=== PATIENT | female | born 1945 | race Caucasian/White ===

== ENCOUNTER → 2021-01-29 10:16 | Outpatient (BNVA) | payer MEDICARE, OTHER, SELFPAY | PROVIDERS: Visit Provider Internal Medicine | DX: N18.31 Chronic kidney disease, stage 3a (principal) | CPT/HCPCS: 80069; 82043; 82310; 83970; 85007; 85027 ==

== ENCOUNTER 2022-08-19 03:56 | Emergency (ER) | payer MEDICARE, OTHER, SELFPAY ==
[2022-08-19] VITALS (7 sets, daily range): BP systolic 126–145; BP diastolic 55–108; PULSE 87–103; RESP 10–20; TEMP 36.3; O2SAT 89–98; BMI 40.2
--- NOTE | 2022-08-19 03:56 | XRR_ITS ---
PROCEDURE INFORMATION: Exam: XR Chest Exam date and time: 08/19/2022 4:17 AM Age: 76 years old Clinical indication: Pain; Chest pressure; Additional info: Cp TECHNIQUE: Imaging protocol: Radiologic exam of the chest. Views: 1 view. COMPARISON: No relevant prior studies available. FINDINGS: Lungs: Normal lung volumes. No interstitial or airspace opacities. Pleural spaces: No pleural effusion. No pneumothorax. Heart/Mediastinum: Mild prominence of the cardiac silhouette on this chest radiograph. There is a mildly tortuous thoracic aorta. Midline trachea. Bones/joints: No acute abnormalities. Mild levoconvex scoliosis of the lower thoracic spine with small degenerative osteophytes. Soft tissues: Multiple external densities are seen overlying the chest, limiting assessment. XR/XR chest 1V portable [id number] IMPRESSION: 1. No confluent infiltrates in the lungs. 2. Mild prominence of the cardiac silhouette on this chest radiograph.
--- NOTE | 2022-08-19 03:57 | ECG_ITS ---
[facility] Test Date: 2022-08-19 Pat Name: Elvia Bauman Department: Room: Gender: Female Railway Station Manager: : 1945 Requested By: Niall Bajwa Order Number: [id number] Leonard MD: Ramon Walters M.D. Measurements Intervals Industry Rate: 95 P: 10 CO: 132 QRS: -52 QRSD: 98 T: 76 QT: 343 QTc: 433 Interpretive Statements SINUS RHYTHM WITH OCCASIONAL SUPRAVENTRICULAR PREMATURE COMPLEXES LEFT ANTERIOR FASCICULAR BLOCK [QRS AXIS <= -45, QR IN I, RS IN II] LEFT VENTRICULAR HYPERTROPHY AND ST-T CHANGE [VOLTAGE CRITERIA PLUS ST/T ABNORMALITY] No previous ECG available for comparison Electronically Signed On 08-19-2022 7:13:09 ACCOUNT INSTALLER by Ramon Walters M.D. [email or web address] medical [id number] f
--- NOTE | 2022-08-19 04:01 | CTR_ITS ---
PROCEDURE INFORMATION: Exam: CTA Chest With Contrast Exam date and time: 08/19/2022 4:51 AM Age: 76 years old Clinical indication: Shortness of breath; Additional info: SOB TECHNIQUE: Imaging protocol: Computed tomographic angiography of the chest with contrast. 3D rendering (Not supervised by radiologist): MIP and/or 3D reconstructed images were created by the technologist. Radiation optimization: All CT scans at this facility use at least one of these dose optimization techniques: automated exposure control; mA and/or kV adjustment per patient size (includes targeted exams where dose is matched to clinical indication); or iterative reconstruction. Contrast material: OMNI 350; Contrast volume: 100 ml; Contrast route: INTRAVENOUS (IV); COMPARISON: CR (CHEST, ) 08/19/2022 4:17 AM RADIATION DOSE METRICS: Total DLP (mGy-cm): 450.14 FINDINGS: Pulmonary arteries: No CT evidence for segmental pulmonary emboli. The main pulmonary arteries and outflow trunk are unremarkable. Aorta: No thoracic aortic aneurysm. No thoracic aortic dissection. Mild atherosclerotic vascular calcifications. Trachea: The central airway is normal. Lungs: There are normal lung volumes. There is no CT evidence of interstitial lung disease. There is no consolidation. Minimal left lower lobe posterior atelectasis with some dependent right lower lobe atelectasis. Pleural spaces: No pneumothorax. No pleural effusion. Heart: Dgqj-tj-pgujxdce cardiomegaly. Mild aortic valve and mitral annulus ossifications. Mild coronary arterial atherosclerotic vascular calcifications. The RV/LV ratio is normal at 1 (no CT evidence of RV strain). Tiny pericardial effusion. Lymph nodes: Enlarged right paratracheal lymph nodes are seen, the largest measuring 1.1 x 1.1 cm. Bones/joints: No acute osseous abnormalities. Mild leftward curvature of the midthoracic spine. Medium to large sized degenerative osteophytes and severe degenerative disc disease changes are seen in the lower thoracic spine. Soft tissues: Unremarkable. Other findings: Small hiatal hernia is seen.The visualized non-contrast opacified stomach is not well distended with relative gastric fold prominence. Assessment is limited. Status post prior cholecystectomy. CT/CT angio chest PE protcl [id number] IMPRESSION: 1. No CTA evidence of pulmonary embolism, thoracic aortic aneurysm or thoracic aortic dissection. 2. Cpeq-vp-teabeqfz cardiomegaly. 3. Small hiatal hernia.
--- NOTE | 2022-08-19 04:01 | W.ED.CHESTPA ---
Documented by User: Niall Bajwa MD 08/19/22 04:12 HPI - Chest Pain General: Chief Complaint: Chest Pain Stated Complaint: Chest Pain Time Seen by Provider: 08/19/22 03:56 Source: patient and EMS Mode of arrival: EMS Limitations: no limitations History of Present Illness: 76-year-old female states that she started having chest pain started at 1 AM. She states is a sharp pain in her upper chest and into her back. States she is having some dyspnea with her pain as well. Her pain originally was a 10 out of 10 patient received nitro aspirin Dilaudid and fentanyl in route states her pain has improved. States her dyspnea is improved as well. Denies any vomiting or diarrhea denies any history of heart disease. Associated symptoms: Reports dyspnea; Deny abdominal pain, fever(s), nausea or vomiting Review of Systems Const: Denies: fever(s), chills, body aches or change in appetite Eyes: Denies: blurry vision or eye discomfort ENMT: Denies: throat pain or dental pain Card: Reports: chest pain Resp: Reports: dyspnea GI: Denies: abdominal pain, nausea, vomiting or diarrhea : Denies: dysuria Musc: Denies: neck pain or back pain Skin/Breast: Denies: rash Neuro: Denies: headache(s) Psych: Denies: depression Abhi/Lymph: Denies: easy bruising All/Imm: Denies: urticaria PFSH ED PFSH: Medical History (Updated 08/19/22 @ 06:25 by Freddy Branch DO) No pertinent past medical history Social History (Updated 08/19/22 @ 04:02 by Niall Bajwa MD) Substance/Drug Use: never Physical Exam Const: COMMON NORMALS: no acute distress, patient oriented x3 and healthy appearing HENMT: COMMON NORMALS: normocephalic and atraumatic HEAD & SCALP: normocephalic and atraumatic Eye: COMMON NORMALS: Equal, round and reactive pupils present and EOMs intact bilaterally PUPIL: Yes Equal, round and reactive pupils present Neck/C-Spine: COMMON NORMALS: full ROM and supple Chest: COMMONS NORMALS: normal inspection of the chest and normal palpation of entire chest wall Resp: COMMON NORMALS: normal respiratory effort, No retractions, No use of accessory muscles and clear to auscultation bilaterally AUSCULTATION: clear to auscultation bilaterally Cardio: COMMON NORMALS: regular rate, regular rhythm and No murmurs present (Cardio) RATE: regular rate RHYTHM: regular rhythm GI: COMMON NORMALS: Normal to inspection, nondistended, normoactive bowel sounds present, Soft to palpation, non-tender and no masses PALPATION: Yes Soft to palpation Extremity: COMMON NORMALS: normal to inspection and full ROM Neuro: COMMON NORMALS: patient oriented x3, moves all extremities and no focal motor deficits Psych: COMMON NORMALS: mental status grossly normal, Normal thought process present and cooperative THOUGHT PROCESS: Normal thought process present Skin: COMMON NORMALS: no rashes or lesions noted and no wounds GENERAL SKIN EXAM: no rashes or lesions noted Course Vital Signs: Vital signs: Vital Signs Temperature 97.4 F L 08/19/22 04:00 Pulse Rate 94 08/19/22 06:14 Respiratory Rate 16 08/19/22 06:14 Blood Pressure 130/55 08/19/22 06:14 Pulse Oximetry 98 08/19/22 06:14 Oxygen Delivery Me thod 08/19/22 06:14 Oxygen Flow Rate 2 08/19/22 06:14 MDM - Chest Pain Lab Data 08/19/22 04:10 08/19/22 04:10 Radiology Impressions Chest X-Ray 08/19/22 03:56 IMPRESSION: 1. No confluent infiltrates in the lungs. 2. Mild prominence of the cardiac silhouette on this chest radiograph. Chest CTA 08/19/22 04:01 IMPRESSION: 1. No CTA evidence of pulmonary embolism, thoracic aortic aneurysm or thoracic aortic dissection. 2. Tjwg-nx-chqyoaiy cardiomegaly. 3. Small hiatal hernia. Laboratory Results WBC 13.5 10^3/uL (4.0-10.0) H 08/19/22 04:10 RBC 4.08 10^6/uL (4.1-5.3) L 08/19/22 04:10 Hgb 12.7 g/dL (11.5-15.3) 08/19/22 04:10 Hct 40.1 % (37.0-47.0) 08/19/22 04:10 MCV 98.3 fl (81-99) 08/19/22 04:10 MCH 31.1 pg (28.0-34.0) 08/19/22 04:10 MCHC 31.7 g/dL (30.0-36.0) 08/19/22 04:10 RDW 13.9 % (12.1-15.1) 08/19/22 04:10 Plt Count 167 10^3/cmm (130-400) 08/19/22 04:10 MPV 11.1 fL (7.4-10.4) H 08/19/22 04:10 Neut % (Auto) 75.1 % 08/19/22 04:10 Lymph % (Auto) 14.1 % 08/19/22 04:10 Ransom % (Auto) 8.4 % 08/19/22 04:10 Eos % (Auto) 1.8 % 08/19/22 04:10 Baso % (Auto) 0.2 % 08/19/22 04:10 Neut # (Auto) 10.12 10^3/uL (1.8-7.7) H 08/19/22 04:10 Lymph # (Auto) 1.9 10^3/uL (0.8-4.8) 08/19/22 04:10 Ransom # (Auto) 1.1 10^3/uL (0.2-0.9) H 08/19/22 04:10 Eos # (Auto) 0.2 10^3/uL (0.0-0.8) 08/19/22 04:10 Baso # (Auto) 0.0 10^3/uL (0.0-0.1) 08/19/22 04:10 Nucleated RBC % (auto) 0 % 08/19/22 04:10 Nucleated RBCs # 0.0 /100WBC 08/19/22 04:10 PT 13.80 SECONDS (12.1-14.9) 08/19/22 04:10 INR 1.03 (0.8-1.2) 08/19/22 04:10 Sodium 133 mmol/L (136-145) L 08/19/22 04:10 Potassium 4.1 mmol/L (3.5-5.1) 08/19/22 04:10 Chloride 99 mmol/L (98-107) 08/19/22 04:10 Carbon Dioxide 28 mmol/L (22-29) 08/19/22 04:10 Anion Gap 10.1 (5-19) 08/19/22 04:10 BUN 25 mg/dL (8-23) H 08/19/22 04:10 Creatinine 0.7 mg/dL (0.5-0.9) 08/19/22 04:10 GFR Calculation Not Reportable 08/19/22 04:10 Glucose 119 mg/dL (65-115) H 08/19/22 04:10 Calculated Osmolality 282 mOsm/kg (285-295) L 08/19/22 04:10 Calcium 9.3 mg/dL (8.5-10.5) 08/19/22 04:10 Total Bilirubin 0.4 mg/dL (0.15-1.2) 08/19/22 04:10 AST 19 U/L (0-32) 08/19/22 04:10 ALT 12 U/L (0-33) 08/19/22 04:10 Alkaline Phosphatase 105 U/L (35-105) 08/19/22 04:10 Troponin T Baseline 18 ng/L (0-10) H 08/19/22 04:10 Troponin T 120 Minute 16.47 ng/L (0-10) H 08/19/22 05:45 Delta Troponin T -1.53 ABS# (0-10) L 08/19/22 05:45 Total Protein 7.5 g/dL (6.6-8.7) 08/19/22 04:10 Albumin 4.2 g/dL (3.5-5.2) 08/19/22 04:10 Globulin 3.3 g/dL (1.3-4.6) 08/19/22 04:10 EKG Data EKG 1: I personally reviewed and interpreted this EKG as follows: EKG interpretation date: 08/19/22 EKG interpretation time: 04:06 Interpretation: nsr hr [address] or t wave abnormalities qrs 98 qtc 396 Discharge Plan Discharge Patient Disposition: Home Clinical Impression: Atypical chest pain Prescriptions: New aspirin 81 mg tablet,delayed release (DR/EC) 81 mg PO DAILY Qty: 30 0RF isosorbide mononitrate 30 mg tablet extended release 24 hr 30 mg PO DAILY Qty: 30 0RF Discharge Orders: Discharge ED (Routine); Ordered 08/19/22 Ordered By: Freddy Branch Discharge Diet: Usual diet Discharge Activity: Limit activity as instructed Patient Instructions: Opioid Safety, Pain Management Activity Restrictions/Additional Instructions: You were seen in the emergency room today for chest pain. The CTA of your chest did not show any aneurysm or pulmonary emboli. There is no evidence of pneumonia or pneumothorax on imaging done today. Your EKG did not show any acute changes and your cardiac enzymes were normal. Recommend that you start baby aspirin daily isosorbide mononitrate 30 mg once daily and we will set you up for an outpatient Lexiscan sestamibi stress test. If you have recurrence of symptoms return to the emergency room. Coding Level of Care Code ED Railroad Construction Director for Chg Fwd Exam Comprehensive Documented by User: Freddy Branch DO 08/19/22 06:35 HPI - Chest Pain General: Chief Complaint: Chest Pain Stated Complaint: Chest Pain Time Seen by Provider: 08/19/22 03:56 [facility] ED PFSH: Medical History (Updated 08/19/22 @ 06:25 by Freddy Branch DO) No pertinent past medical history Social History (Updated 08/19/22 @ 04:02 by Niall Bajwa MD) Substance/Drug Use: never Course Vital Signs: Vital signs: Vital Signs Temperature 97.4 F L 08/19/22 04:00 Pulse Rate 94 08/19/22 06:14 Respiratory Rate 16 08/19/22 06:14 Blood Pressure 130/55 08/19/22 06:14 Pulse Oximetry 98 08/19/22 06:14 Oxygen Delivery Me thod 08/19/22 06:14 Oxygen Flow Rate 2 08/19/22 06:14 MDM - Chest Pain Medical Decision Making Care assumed from Dr. Bajwa at change of shift second EKG did not show any acute ST changes initial labs and imaging at Dr. Bajwa abdominal reviewed. CTA and chest x-ray were normal. Troponins trending negative. We will discharge the patient home started on isosorbide mononitrate 30 mg daily as well as baby aspirin daily and set up for an outpatient Lexiscan sestamibi stress test. Patient advised to return the emergency room as recurrent chest pain. Medical Records I reviewed the patient's medical records. Lab Data I reviewed the patient's lab results. 08/19/22 04:10 08/19/22 04:10 Radiology Impressions Chest X-Ray 08/19/22 03:56 IMPRESSION: 1. No confluent infiltrates in the lungs. 2. Mild prominence of the cardiac silhouette on this chest radiograph. Chest CTA 08/19/22 04:01 IMPRESSION: 1. No CTA evidence of pulmonary embolism, thoracic aortic aneurysm or thoracic aortic dissection. 2. Ukjd-gz-qujrvooe cardiomegaly. 3. Small hiatal hernia. Laboratory Results WBC 13.5 10^3/uL (4.0-10.0) H 08/19/22 04:10 RBC 4.08 10^6/uL (4.1-5.3) L 08/19/22 04:10 Hgb 12.7 g/dL (11.5-15.3) 08/19/22 04:10 Hct 40.1 % (37.0-47.0) 08/19/22 04:10 MCV 98.3 fl (81-99) 08/19/22 04:10 MCH 31.1 pg (28.0-34.0) 08/19/22 04:10 MCHC 31.7 g/dL (30.0-36.0) 08/19/22 04:10 RDW 13.9 % (12.1-15.1) 08/19/22 04:10 Plt Count 167 10^3/cmm (130-400) 08/19/22 04:10 MPV 11.1 fL (7.4-10.4) H 08/19/22 04:10 Neut % (Auto) 75.1 % 08/19/22 04:10 Lymph % (Auto) 14.1 % 08/19/22 04:10 Ransom % (Auto) 8.4 % 08/19/22 04:10 Eos % (Auto) 1.8 % 08/19/22 04:10 Baso % (Auto) 0.2 % 08/19/22 04:10 Neut # (Auto) 10.12 10^3/uL (1.8-7.7) H 08/19/22 04:10 Lymph # (Auto) 1.9 10^3/uL (0.8-4.8) 08/19/22 04:10 Ransom # (Auto) 1.1 10^3/uL (0.2-0.9) H 08/19/22 04:10 Eos # (Auto) 0.2 10^3/uL (0.0-0.8) 08/19/22 04:10 Baso # (Auto) 0.0 10^3/uL (0.0-0.1) 08/19/22 04:10 Nucleated RBC % (auto) 0 % 08/19/22 04:10 Nucleated RBCs # 0.0 /100WBC 08/19/22 04:10 PT 13.80 SECONDS (12.1-14.9) 08/19/22 04:10 INR 1.03 (0.8-1.2) 08/19/22 04:10 Sodium 133 mmol/L (136-145) L 08/19/22 04:10 Potassium 4.1 mmol/L (3.5-5.1) 08/19/22 04:10 Chloride 99 mmol/L (98-107) 08/19/22 04:10 Carbon Dioxide 28 mmol/L (22-29) 08/19/22 04:10 Anion Gap 10.1 (5-19) 08/19/22 04:10 BUN 25 mg/dL (8-23) H 08/19/22 04:10 Creatinine 0.7 mg/dL (0.5-0.9) 08/19/22 04:10 GFR Calculation Not Reportable 08/19/22 04:10 Glucose 119 mg/dL (65-115) H 08/19/22 04:10 Calculated Osmolality 282 mOsm/kg (285-295) L 08/19/22 04:10 Calcium 9.3 mg/dL (8.5-10.5) 08/19/22 04:10 Total Bilirubin 0.4 mg/dL (0.15-1.2) 08/19/22 04:10 AST 19 U/L (0-32) 08/19/22 04:10 ALT 12 U/L (0-33) 08/19/22 04:10 Alkaline Phosphatase 105 U/L (35-105) 08/19/22 04:10 Troponin T Baseline 18 ng/L (0-10) H 08/19/22 04:10 Troponin T 120 Minute 16.47 ng/L (0-10) H 08/19/22 05:45 Delta Troponin T -1.53 ABS# (0-10) L 08/19/22 05:45 Total Protein 7.5 g/dL (6.6-8.7) 08/19/22 04:10 Albumin 4.2 g/dL (3.5-5.2) 08/19/22 04:10 Globulin 3.3 g/dL (1.3-4.6) 08/19/22 04:10 Discharge Plan Discharge Patient Disposition: Home Clinical Impression: Atypical chest pain Prescriptions: New aspirin 81 mg tablet,delayed release (DR/EC) 81 mg PO DAILY Qty: 30 0RF isosorbide mononitrate 30 mg tablet extended release 24 hr 30 mg PO DAILY Qty: 30 0RF Discharge Orders: Discharge ED (Routine); Ordered 08/19/22 Ordered By: Freddy Branch Discharge Diet: Usual diet Discharge Activity: Limit activity as instructed Patient Instructions: Opioid Safety, Pain Management Activity Restrictions/Additional Instructions: You were seen in the emergency room today for chest pain. The CTA of your chest did not show any aneurysm or pulmonary emboli. There is no evidence of pneumonia or pneumothorax on imaging done today. Your EKG did not show any acute changes and your cardiac enzymes were normal. Recommend that you start baby aspirin daily isosorbide mononitrate 30 mg once daily and we will set you up for an outpatient Lexiscan sestamibi stress test. If you have recurrence of symptoms return to the emergency room. Coding Level of Care Code ED Railroad Construction Director for Zohaib Fwd Exam Comprehensive
[2022-08-19 04:16] LABS: Basophils % 0.2 %; Eosinophils # 0.2 10^3/uL (0.0-0.8); Eosinophils % 1.8 %; Hematocrit 40.1 % (37.0-47.0); Hemoglobin 12.7 g/dL (11.5-15.3); Lymphocytes # 1.9 10^3/uL (0.8-4.8); Lymphocytes % 14.1 %; Mean Corpuscular HGB Conc 31.7 g/dL (30.0-36.0); Mean Corpuscular Hemoglobin 31.1 pg (28.0-34.0); Mean Corpuscular Volume 98.3 fl (81-99); Mean Platelet Volume 11.1 fL (7.4-10.4); Monocytes # 1.1 10^3/uL (0.2-0.9); Monocytes % 8.4 %; Neutrophils # 10.12 10^3/uL (1.8-7.7); Neutrophils % 75.1 %; Nucleated Red Blood Cells % 0 %; Platelet Count 167 10^3/cmm (130-400); Red Blood Count 4.08 10^6/uL (4.1-5.3); Red Cell Distribution Width 13.9 % (12.1-15.1); White Blood Count 13.5 10^3/uL (4.0-10.0)
[2022-08-19 04:32] LABS: INR 1.03 (0.8-1.2)
[2022-08-19 04:39] LABS: Alanine Aminotransferase 12 U/L (0-33); Albumin Level 4.2 g/dL (3.5-5.2); Alkaline Phosphatase 105 U/L (35-105); Anion Gap 10.1 (5-19); Aspartate Amino Transferase 19 U/L (0-32); Blood Urea Nitrogen 25 mg/dL (8-23); Calcium 9.3 mg/dL (8.5-10.5); Carbon Dioxide 28 mmol/L (22-29); Chloride 99 mmol/L (98-107); Globulin 3.3 g/dL (1.3-4.6); Glucose 119 mg/dL (65-115); Osmolality Calculated 282 mOsm/kg (285-295); Potassium 4.1 mmol/L (3.5-5.1); Sodium 133 mmol/L (136-145); Total Bilirubin 0.4 mg/dL (0.15-1.2); Total Protein 7.5 g/dL (6.6-8.7)
[2022-08-19 04:42] LABS: Troponin(5th) Baseline 18 ng/L (0-10)
--- NOTE | 2022-08-19 05:15 | PC.NURSE ---
Assisted pt with bedpan. Pt tolerated well.
--- NOTE | 2022-08-19 05:57 | ECG_ITS ---
[facility] Test Date: 2022-08-19 Pat Name: Elvia Bauman Department: Room: Gender: Female Eyelet Punch Operator: : 1945 Requested By: Niall Bajwa Order Number: [id number] Leonard MD: Ramon Walters M.D. Measurements Intervals Chancellor Rate: 96 P: 49 IA: 145 QRS: -50 QRSD: 88 T: 64 QT: 332 QTc: 420 Interpretive Statements SINUS RHYTHM WITH MARKED SINUS ARRHYTHMIA LEFT ANTERIOR FASCICULAR BLOCK [QRS AXIS <= -45, QR IN I, RS IN II] Compared to ECG 08/19/2022 04:06:09 Left ventricular hypertrophy no longer present ST (T wave) deviation no longer present Electronically Signed On 08-19-2022 7:18:49 CRITICAL CARE NURSE by Ramon Walters M.D. [id number]
[2022-08-19 06:13] LABS: Troponin 5 2HR 16.47 ng/L (0-10)
[2022-08-19 06:18] LABS: Troponin 5 2HR Delta -1.53 ABS# (0-10)
[2022-08-19] MEDS: ketorolac 30 mg/mL INJ 15 MG IVP (06:37)
--- NOTE | 2022-08-19 14:40 | DCPLANNER ---
Addendum entered by Rebecca Bennett 10/16/22 07:40: Patient had an outpatient stress test - patient did attend the appointment. Addendum entered by Rebecca Bennett 08/21/22 11:06: Patient has an outpatient stress test scheduled for Friday, September 23, 2022 at 10:30. Centralized scheduling will call patient with appointment information. Original Note: contract project manager had message to schedule an outpatient stress test for patient. contract project manager faxed signed order to centralized scheduling, who will call patient with appointment information.
== END 2022-08-19 06:46 | disposition home or self-care (01) ==
PROVIDERS: Emergency Medicine; Emergency Provider Family Medicine
DX: R07.89 Other chest pain (principal)
CPT/HCPCS: 71045; 71275; 80053; 84484; 85025; 85610; 93005; 96374; 99285; J1885; Q9967

== ENCOUNTER → 2022-08-21 09:25 | Outpatient (BNVA) | payer MEDICARE, OTHER, SELFPAY | PROVIDERS: Visit Provider Podiatrist Foot & Ankle Surgery | DX: L60.0 Ingrowing nail (principal); I73.9 Peripheral vascular disease, unspecified; B35.1 Tinea unguium; L84 Corns and callosities | CPT/HCPCS: 11056; 11721; 11750; 99204; A6219 ==

== ENCOUNTER → 2022-09-11 09:16 | Outpatient (BNVA) | payer MEDICARE, OTHER, SELFPAY | PROVIDERS: Visit Provider Podiatrist Foot & Ankle Surgery | DX: B35.1 Tinea unguium (principal); L84 Corns and callosities; L60.0 Ingrowing nail; I73.9 Peripheral vascular disease, unspecified | CPT/HCPCS: 99213 ==

== ENCOUNTER 2022-10-01 09:15 | Outpatient (CLI) | payer MEDICARE, OTHER, SELFPAY ==
--- NOTE | 2022-10-01 | ECG_ITS ---
[facility] Test Date: 2022-10-01 Pat Name: Elvia Bauman Department: Room: Gender: Female Product Manager Financial Services: Charlotte Zapata : 1945 Requested By: Freddy Jiménez Order Number: [id number] Leonard MD: Enoc Negrete M.D. Interpretive Statements NAME OF STUDY: LEXISCAN SESTAMIBI STRESS TEST INDICATION: Atypical Chest Pain, PROCEDURE: At the baseline, the EKG revealed normal sinus rhythm with sinus arrhythmia. The baseline heart was 76 bpm with a blood pressue of 135/65 mm of Hg Lexiscan was infused over a period of 20 seconds. A total of 0.4 milligrams of Lexiscan was infused. The stress phase was continued for a total of 5 minutes. Heart rate at the end of the stress phase was 97 bpm with a blood pressure 130/62 mm of Hg. The EKG at the peak infusion revealed no significant changes. Sestamibi was injected 20 seconds after the Lexiscan infusion. Heart rate at the end of the recovery phase was 97 bpm with a blood pressure of 133/54 mm of Hg. CONCLUSION: 1. No significant EKG changes with the LexiScan infusion 2. No LexiScan induced chest pain or cardiac arrhythmia 3. Normal blood pressure and heart rate response 4. Sestamibi/sestamibi perfusion scan pending; see separate report. Electronically Signed On 10-05-2022 16:04:43 JOURNEYMAN OPERATOR ASSISTANT by Enoc Negrete M.D. [email or web address]
[2022-10-01 09:59] VITALS: BMI 43.4
--- NOTE | 2022-10-01 09:59 | NMCV_ITS ---
NM keon perf SPECT r/s* [id number] Elvia Bauman Age: 76 Gender: F : 1945 Exam Date: 10/01/2022 09:59 Ordering Phys: Freddy Branch DO Technologist: BALAJI Fregoso Exam Location: [facility] Indications: CHEST PAIN STRESS TEST Please see separate stress test report in [facility] for full findings IMAGE PROTOCOL Rest/Stress 1 Lexiscan Day Radiopharmaceutical Dose (mCi) Administration Site Administered by Rest: Tc-99m 10.5 IV BALAJI Payton Sestamibi Stress:Tc-99m 32.9 IV BALAJI Payton Sestamibi Rest: 01-Oct-2022 60 Discovery 630 Stress: 01-Oct-2022 30 Discovery 630 0.4mg Lexiscan. Supine position only as patient was unable to lay prone. SPECT RESULTS Technical Quality: Excellent Raw Data Analysis: Normal Image Corrections: No attenuation or motion correction applied Summed Stress Score: 0 Summed Rest Score: 0 Summed Difference Score: 0 PERFUSION FINDINGS Fairly uniform myocardial tracer uptake with no significant perfusion normalities FUNCTIONAL RESULTS (calculated via Gated SPECT) Stress Image LV EF (%): 81 Stress EDV (mL):68 TID: 0.78 Stress ESV (mL):13 FUNCTIONAL FINDINGS: Segmental wall motion analysis revealing no gross wall motion abnormalities IMPRESSIONS 1. Unremarkable Myocardial perfusion imaging. 2. Normal LV ejection fraction of 81%. 3. LV wall motion analysis revealing no gross wall motion abnormalities. 4. Normal LV volume Low probability for coronary ischemia, based on the above findings Dr Enoc Negrete MD [facility] (Electronically Signed) Final Date: 01 October 2022 14:10 S
[2022-10-01] MEDS: regadenoson 0.4 Mg/5 ml Syringe IVP (11:23)
[2022-10-01 11:30] VITALS: BP 133/54; PULSE 95
== END 2022-10-01 09:16 | disposition home or self-care (01) ==
PROVIDERS: PCP Family Medicine; Visit Provider Family Medicine
DX: R07.89 Other chest pain (principal)
CPT/HCPCS: 36415; 78452; 93017; 96374; A9500; J2785

== ENCOUNTER → 2022-10-29 13:16 | Outpatient (BNVA) | payer MEDICARE, OTHER, SELFPAY | PROVIDERS: PCP Family Medicine; Visit Provider Podiatrist Foot & Ankle Surgery | DX: I73.9 Peripheral vascular disease, unspecified (principal); B35.1 Tinea unguium; L84 Corns and callosities | CPT/HCPCS: 11721 ==

== ENCOUNTER → 2022-12-31 13:03 | Outpatient (BNVA) | payer MEDICARE, OTHER, SELFPAY | PROVIDERS: PCP Family Medicine; Visit Provider Podiatrist Foot & Ankle Surgery | DX: I73.9 Peripheral vascular disease, unspecified (principal); L84 Corns and callosities | CPT/HCPCS: 11056; 11721 ==

== ENCOUNTER → 2023-03-11 08:52 | Outpatient (BNVA) | payer MEDICARE, OTHER, SELFPAY | PROVIDERS: PCP Family Medicine; Visit Provider Podiatrist Foot & Ankle Surgery | DX: B35.1 Tinea unguium (principal); L84 Corns and callosities; I73.9 Peripheral vascular disease, unspecified | CPT/HCPCS: 11056; 11721 ==

== ENCOUNTER 2023-04-30 06:00 | Outpatient (RCR) | payer MEDICARE, OTHER, SELFPAY | END 2023-05-03 23:59 | disposition home or self-care (01) | LOC: MOT 06:00 | PROVIDERS: Visit Provider Family Medicine | DX: I89.0 Lymphedema, not elsewhere classified (principal) | CPT/HCPCS: 97140; 97166 ==

== ENCOUNTER 2023-05-04 06:00 | Outpatient (RCR) | payer MEDICARE, OTHER, SELFPAY | END 2023-06-03 23:59 | disposition home or self-care (01) | LOC: MOT 06:00 | PROVIDERS: Visit Provider Family Medicine | DX: R60.0 Localized edema (principal) | CPT/HCPCS: 97140 ==

== ENCOUNTER 2023-06-04 06:00 | Outpatient (RCR) | payer MEDICARE, OTHER, SELFPAY | END 2023-07-03 23:59 | disposition home or self-care (01) | LOC: MOT 06:00 | PROVIDERS: Visit Provider Family Medicine | DX: R60.0 Localized edema (principal); N18.31 Chronic kidney disease, stage 3a; E66.01 Morbid (severe) obesity due to excess calories; Z99.89 Dependence on other enabling machines and devices | CPT/HCPCS: 97140 ==

== ENCOUNTER → 2023-06-09 14:36 | Outpatient (BNVA) | payer MEDICARE, OTHER, SELFPAY | PROVIDERS: Visit Provider Podiatrist Foot & Ankle Surgery | DX: B35.1 Tinea unguium (principal); I73.9 Peripheral vascular disease, unspecified | CPT/HCPCS: 11721 ==

== ENCOUNTER → 2023-09-01 11:06 | Outpatient (BNVA) | payer MEDICARE, OTHER, SELFPAY | PROVIDERS: PCP Family Medicine; Visit Provider Podiatrist Foot & Ankle Surgery | DX: B35.1 Tinea unguium (principal); I73.9 Peripheral vascular disease, unspecified; L84 Corns and callosities | CPT/HCPCS: 11056; 11721 ==

== ENCOUNTER → 2023-11-26 13:50 | Outpatient (BNVA) | payer MEDICARE, OTHER, SELFPAY | PROVIDERS: PCP Family Medicine; Visit Provider Podiatrist Foot & Ankle Surgery | DX: B35.1 Tinea unguium (principal); I73.9 Peripheral vascular disease, unspecified; L84 Corns and callosities | CPT/HCPCS: 11056; 11721 ==

== ENCOUNTER → 2024-02-17 13:14 | Outpatient (BNVA) | payer MEDICARE, OTHER, SELFPAY | PROVIDERS: PCP Family Medicine; Visit Provider Podiatrist Foot & Ankle Surgery | DX: B35.1 Tinea unguium (principal); I73.9 Peripheral vascular disease, unspecified; M79.672 Pain in left foot; L84 Corns and callosities | CPT/HCPCS: 11056; 11721 ==

== ENCOUNTER 2024-02-22 21:12 | Emergency (ER) | payer MEDICARE, OTHER, SELFPAY ==
[2024-02-22 21:40] VITALS: BP 153/74; PULSE 59; RESP 17; TEMP 36.9; O2SAT 95; BMI 40.3
--- NOTE | 2024-02-22 22:28 | ED_ITS ---
HPI - Skin/Abscess/Foreign Bdy General: Chief complaint: Skin/Abscess/Foreign Body Stated complaint: staph on legs, now has streaks up legs Time Seen by Provider: 02/22/24 22:28 History of Present Illness: 78-year-old female comes in today for co ncerns of redness to bilateral shins. Patient was told that she had staph and had just completed cephalexin. Patient appears nontoxic. Patient ambulates without difficulty. No significant edema is noted to the lower extremities. Patient does have chronic kidney disease. Review of Systems General: Reports: 10 or more systems reviewed and unremarkable except in HPI and below PFSH ED PFSH: Medical History Peripheral edema No pertinent past medical history Social History Smoking and tobacco/nicotine status: never used tobacco/nicotine Substance/Drug Use: never Female Reproductive History: Spontaneous abortions: No Physical Exam Const: COMMON NORMALS: alert HENMT: COMMON NORMALS: normocephalic HEAD & SCALP: normocephalic Neck/C-Spine: COMMON NORMALS: full ROM Resp: COMMON NORMALS: normal respiratory effort and clear to auscultation bilaterally AUSCULTATION: clear to auscultation bilaterally Cardio: COMMON NORMALS: regular rate and regular rhythm RATE: regular rate RHYTHM: regular rhythm GI: COMMON NORMALS: Soft to palpation and non-tender PALPATION: Yes Soft to palpation Extremity: NARRATIVE EXTREMITY EXAM: No significant edema to lower extremities. Patient has 2 areas of redness to the right worse than the left with some centralized excoriation. The areas of redness are approximately 5 cm ovoid to the anterior part of the lower leg. Patient does have a small 1 cm ulcer to the left leg. Neuro: SENSORIUM/ORIENTATION: Yes alert Skin: NARRATIVE SKIN EXAM: Redness and excoriation anterior bilateral lower legs. Course Vital Signs: Vital signs: Vital Signs Temperature 98.4 F 02/22/24 21:40 Pulse Rate 59 L 02/22/24 21:40 Respiratory Rate 17 02/22/24 21:40 Blood Pressure 153/74 02/22/24 21:40 Pulse Oximetry 95 02/22/24 21:40 Oxygen Delivery Me thod Room Air 02/22/24 21:40 MDM - Skin/Abscess/Foreign Bdy Medicial Decision Making Patient presents today with complaints of increased redness to lower extremities. Patient is afebrile. Patient appears no pain. Patient appears nontoxic. Vital signs normal except for some mild elevation blood pressure at 153/74. Differential diagnosis stasis dermatitis, contact dermatitis, cellulitis, PAD. Patient has a mild cellulitis. Most likely cephalexin was not covering the staph as well. Will go ahead and put patient on doxycycline for better staph coverage. Patient reports understanding of care plan need for follow-up or return to the ER for worsening symptoms. No radiology studies performed this visit Discharge Plan Discharge Patient Disposition: Home Clinical Impression: Cellulitis Qualifiers: Site of cellulitis: extremity Site of cellulitis of extremity: lower extremity Laterality: unspecified laterality Qualified Code(s): L03.119 - Cellulitis of unspecified part of limb Condition: Stable Prescriptions: New doxycycline hyclate 100 mg capsule 100 mg PO BID 10 Days Qty: 20 0RF No Action lisinopril 10 mg tablet 10 mg PO DAILY flaxseed oil [[place]-3 Flaxseed Oil] 1,000 mg capsule 1,000 mg PO DAILY Rx Instructions: administer with a meal cholecalciferol (vitamin D3) 50 mcg (2,000 unit) capsule 50 mcg PO DAILY PreserVision AREDS [id number],320-226-200 [id number] capsule 1 cap PO BID polymyxin B sulf-trimethoprim [Polytrim] 10,000 unit- 1 mg/mL drops 1 drp ophthalmic (eye) .four times daily 7 Days Qty: 10 0RF Rx Instructions: while awake; do not exceed 6 doses in 24 hours (DME) Orthopedic shoes with 3 pairs of heated and molded inserts See Rx Instructions .Route .MEDSUPPLY Qty: 1 0RF Rx Instructions: As directed to the shoe guvika sulfamethoxazole-trimethoprim [Bactrim DS] 800-160 mg tablet 1 tab PO BID 10 Days Qty: 20 0RF furosemide [Lasix] 40 mg tablet 40 mg PO DAILY Qty: 3 0RF aspirin 81 mg tablet,delayed release (DR/EC) 81 mg PO DAILY Qty: 30 0RF isosorbide mononitrate 30 mg tablet extended release 24 hr 30 mg PO DAILY Qty: 30 0RF Discharge Orders: Discharge ED (Routine); Ordered 02/22/24 Ordered By: Romario Galicia Referrals: Matt Chavez [Primary Care Provider] - Discharge Diet: Usual diet Discharge Activity: Increase activity as tolerated Patient Instructions: Cellulitis (ED) Activity Restrictions/Additional Instructions: Continue wound care as directed. Elevate legs as much as possible. Take antibiotic as directed. Follow-up with primary care in 3 to 5 days for recheck. Return to ED for new concerns. Coding Level of Care Code ED Log Chipper for Zohaib Johnson
[2024-02-22 22:36] VITALS: BP 140/64; PULSE 59; O2SAT 97
[2024-02-22] MEDS: doxycycline 100 mg Tablet PO (22:43)
[2024-02-22 23:00] VITALS: BP 142/78; PULSE 75; O2SAT 96
== END 2024-02-22 23:05 | disposition home or self-care (01) ==
PROVIDERS: Emergency Provider Nurse Practitioner Family; PCP Family Medicine
DX: L03.116 Cellulitis of left lower limb (principal); L03.115 Cellulitis of right lower limb; Z79.82 Long term (current) use of aspirin; N18.9 Chronic kidney disease, unspecified
CPT/HCPCS: 99283

== ENCOUNTER → 2024-06-01 10:45 | Outpatient (BNVA) | payer MEDICARE, OTHER, SELFPAY | PROVIDERS: PCP Family Medicine; Visit Provider Podiatrist Foot & Ankle Surgery | DX: B35.1 Tinea unguium (principal); I73.9 Peripheral vascular disease, unspecified; L84 Corns and callosities | CPT/HCPCS: 11056; 11721 ==

== ENCOUNTER 2024-08-25 05:26 | Emergency (ER) | payer MEDICARE, OTHER, SELFPAY ==
[2024-08-25 05:30] VITALS: BP 171/90; PULSE 79; RESP 18; TEMP 36.7; O2SAT 98; BMI 40.3
--- NOTE | 2024-08-25 05:44 | W.ED.ABDPA2 ---
HPI - Abdominal Pain General: Chief Complaint: Abdominal Pain Stated Complaint: LEFT SIDE PAIN Time Seen by Provider: 08/25/24 05:39 History of Present Illness: 78-year-old female presents to the emergency room with complaint of what she describes left-sided pain however when you ask her to specifically show where it hurts she refers to left paraspinal area at the lumbosacral junction. She denies any falls or trauma. She denies any dysuria urgency or frequency no fever sweats or chills she does not really have any abdominal pain per se. She has not noticed any rash. Associated Symptoms: Denies chills, coffee ground emesis, diarrhea, dysuria, fever(s), hematochezia, hematemesis, melena, nausea and vomiting Related Data Home Medications Medication Instructions Recorded Confirmed cholecalciferol (vitamin D3) 50 50 mcg PO DAILY 08/21/22 08/25/24 mcg (2,000 unit) capsule flaxseed oil 1,000 mg capsule 1,000 mg PO DAILY 08/21/22 08/25/24 ([place]-3 Flaxseed Oil) lisinopril 10 mg tablet 10 mg PO DAILY 08/21/22 08/25/24 vitamins A,C,C-scqk-tiqljw 4,296 1 cap PO BID 08/21/22 08/25/24 mcg-226 mg-90 mg capsule (PreserVision AREDS) peg 400-propylene glycol (PF) 0.4 1 drp ophthalmic (eye) DAILY 08/25/24 08/25/24 %-0.3 % eye drops in a dropperette (Systane (PF)) Previous Rx's Medication Instructions Recorded aspirin 81 mg tablet,delayed 81 mg PO DAILY #30 tabs 08/19/22 release Orthopedic shoes with 3 pairs of #1 ea 06/09/23 heated and molded inserts diclofenac sodium 75 mg 75 mg PO Q12H PRN pain #20 tabs 08/25/24 tablet,delayed release tizanidine 4 mg tablet 4 mg PO Q6H PRN muscle spasticity 08/25/24 #20 tabs Allergies Allergy/AdvReac Type Severity Reaction Status Date / Time No Known Allergies Allergy Verified 06/01/24 11:03 Review of Systems Const: Denies: fever(s) or chills Card: Denies: chest pain Resp: Denies: dyspnea GI: Denies: abdominal pain, nausea, vomiting, hematemesis, coffee ground emesis, diarrhea, hematochezia or melena : Denies: dysuria, urinary frequency or urinary urgency Musc: Reports: back pain; Denies: neck pain Skin/Breast: Denies: rash PFSH ED PFSH: Medical History Peripheral edema No pertinent past medical history Social History Smoking and tobacco/nicotine status: never used tobacco/nicotine Substance/Drug Use: never Female Reproductive History: Spontaneous abortions: No Physical Exam Const: COMMON NORMALS: no acute distress GENERAL APPEARANCE: cooperative and comfortable ORIENTATION/CONSCIOUSNESS: Yes awake, Yes oriented to person, Yes oriented to place and Yes oriented to time HENMT: COMMON NORMALS: normocephalic, atraumatic and hearing grossly normal bilaterally HEAD & SCALP: normocephalic and atraumatic Resp: COMMON NORMALS: normal respiratory effort, No retractions, No use of accessory muscles and clear to auscultation bilaterally AUSCULTATION: clear to auscultation bilaterally Cardio: COMMON NORMALS: regular rate, regular rhythm and No murmurs present (Cardio) RATE: regular rate RHYTHM: regular rhythm GI: COMMON NORMALS: Soft to palpation and No hepatosplenomegaly present AUSCULTATION: Yes normoactive bowel sounds PALPATION: Yes Soft to palpation, No Tenderness to palpation present (GI), No Guarding due to palpation present (GI) and Yes No hepatosplenomegaly present Back/Pelvis: OTHER: Mild discomfort left paraspinal muscles at the L5-S1 level. No rash at Extremity: COMMON NORMALS: normal to inspection, capillary refill normal, no clubbing, cyanosis or edema, no calf tenderness and no pedal edema Neuro: SENSORIUM/ORIENTATION: Yes oriented to person, Yes oriented to place and Yes oriented to time Skin: COMMON NORMALS: no rashes or lesions noted GENERAL SKIN EXAM: no rashes or lesions noted Course Vital Signs: Vital signs: Vital Signs Temperature 98.0 F 08/25/24 05:30 Pulse Rate 87 08/25/24 11:11 Respiratory Rate 18 08/25/24 10:53 Blood Pressure 191/84 08/25/24 11:11 Pulse Oximetry 99 08/25/24 11:11 Oxygen Delivery Me thod Room Air 08/25/24 08:52 MDM - Abdominal Pain Medical Decision Making Pain improved with medications given. Will discharge patient home with pain medications. Have her follow-up with her primary care. If she has persistent symptoms may need advanced imaging. Lab Data 08/25/24 06:20 08/25/24 06:20 Labs/Radiology: Radiology Impressions Lumbar Spine X-Ray 08/25/24 05:53 IMPRESSION: Thoracolumbar spondylosis. Grade 1-2 anterolisthesis of L4 on L5 likely secondary to severe facet degeneration. Lumbar Spine CT 08/25/24 07:16 IMPRESSION: 1. No acute lumbar spine fracture. 2. 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 3. L4-5: Severe central, subarticular recess and moderate foraminal stenosis due to combination of disc, facet and ligamentum flavum disease and the scoliosis. 4. L4 anterolisthesis by 6 mm. 5. L3-4: Moderate central, bilateral subarticular recess and mild foraminal stenosis. 6. L2-3: Mild central, bilateral subarticular recess and foraminal stenosis. 7. L1-2: Mild RIGHT subarticular recess and foraminal stenosis due to broad-based disc protrusion. Laboratory Results WBC 4.87 10^3/uL (3.29-11.43) 08/25/24 06:20 RBC 3.94 10^6/uL (3.85-5.65) 08/25/24 06:20 Hgb 12.60 g/dL (11.27-16.99) 08/25/24 06:20 Hct 36.9 % (36-47) 08/25/24 06:20 MCV 93.7 fl (85-98) 08/25/24 06:20 MCH 32.0 pg (27-33) 08/25/24 06:20 MCHC 34.1 g/dL (30-55) 08/25/24 06:20 RDW 11.9 % (12.1-15.1) L 08/25/24 06:20 Plt Count 168 10^3/cmm (157-399) 08/25/24 06:20 MPV 10.9 fL (7.4-10.4) H 08/25/24 06:20 Neut % (Auto) 78.8 % 08/25/24 06:20 Lymph % (Auto) 14.2 % 08/25/24 06:20 [place] % (Auto) 6.2 % 08/25/24 06:20 Eos % (Auto) 0.2 % 08/25/24 06:20 Baso % (Auto) 0.4 % 08/25/24 06:20 Neut # (Auto) 3.84 10^3/uL (1.8-7.7) 08/25/24 06:20 Lymph # (Auto) 0.7 10^3/uL (0.8-4.8) L 08/25/24 06:20 [place] # (Auto) 0.3 10^3/uL (0.2-0.9) 08/25/24 06:20 Eos # (Auto) 0.0 10^3/uL (0.0-0.8) 08/25/24 06:20 Baso # (Auto) 0.0 10^3/uL (0.0-0.1) 08/25/24 06:20 Nucleated RBC % (auto) 0 % 08/25/24 06:20 Nucleated RBCs # 0.0 /100WBC 08/25/24 06:20 Sodium 136 mmol/L (136-145) 08/25/24 06:20 Potassium 3.9 mmol/L (3.5-5.1) 08/25/24 06:20 Chloride 97 mmol/L (98-107) L 08/25/24 06:20 Carbon Dioxide 27 mmol/L (22-29) 08/25/24 06:20 Anion Gap 15.9 (5-19) 08/25/24 06:20 BUN 14 mg/dL (8-23) 08/25/24 06:20 Creatinine 0.7 mg/dL (0.5-0.9) 08/25/24 06:20 GFR Calculation Not Reportable 08/25/24 06:20 Glucose 115 mg/dL (65-115) 08/25/24 06:20 Calculated Osmolality 283 mOsm/kg (285-295) L 08/25/24 06:20 Calcium 9.4 mg/dL (8.5-10.5) 08/25/24 06:20 Total Bilirubin 0.5 mg/dL (0.15-1.2) 08/25/24 06:20 AST 20 U/L (0-32) 08/25/24 06:20 ALT 7 U/L (0-33) 08/25/24 06:20 Alkaline Phosphatase 102 U/L (35-105) 08/25/24 06:20 Total Protein 6.7 g/dL (6.6-8.7) 08/25/24 06:20 Albumin 4.0 g/dL (3.5-5.2) 08/25/24 06:20 Globulin 2.7 g/dL (1.3-4.6) 08/25/24 06:20 Lipase 54 U/L (13-60) 08/25/24 06:20 Urine Color Yellow (Yellow) 08/25/24 06:20 Urine Appearance Clear (CLEAR) 08/25/24 06:20 Urine pH 7.0 (5-7) 08/25/24 06:20 Ur Specific [place] 1.007 (1.005-1.030) 08/25/24 06:20 Urine Protein 1+ (Negative) A 08/25/24 06:20 Urine Glucose (UA) Negative (Normal) 08/25/24 06:20 Urine Ketones Trace (Negative) 08/25/24 06:20 Urine Blood Negative (Negative) 08/25/24 06:20 Urine Nitrate Negative (Negative) 08/25/24 06:20 Urine Bilirubin Negative (Negative) 08/25/24 06:20 Urine Urobilinogen 0.2 mg/dL (Negative) 08/25/24 06:20 Ur Leukocyte Esterase Negative (Negative) 08/25/24 06:20 Urine RBC 0-2 /hpf (0-2) 08/25/24 06:20 Urine WBC 6-10 /hpf (0-5) 08/25/24 06:20 Ur Squamous Epith Cells 0-5 /hpf (0-5) 08/25/24 06:20 Amorphous Sediment Not Reportable 08/25/24 06:20 Urine Bacteria None seen /hpf (NONE) 08/25/24 06:20 Hyaline Casts 0-4 /lpf H 08/25/24 06:20 All radiology interpretation(s) finalized by discharge Discharge Plan Discharge Patient Disposition: Home Clinical Impression: Back pain, Lumbar foraminal stenosis Condition: Stable Prescriptions: New tizanidine 4 mg tablet 4 mg PO Q6H PRN (Reason: muscle spasticity) Qty: 20 0RF Rx Instructions: do not exceed 3 doses per 24 hrs diclofenac sodium 75 mg tablet,delayed release (DR/EC) 75 mg PO Q12H PRN (Reason: pain) Qty: 20 0RF No Action lisinopril 10 mg tablet 10 mg PO DAILY flaxseed oil [[place]-3 Flaxseed Oil] 1,000 mg capsule 1,000 mg PO DAILY Rx Instructions: administer with a meal cholecalciferol (vitamin D3) 50 mcg (2,000 unit) capsule 50 mcg PO DAILY PreserVision AREDS 14,320-226-200 opoi-ro-kpar capsule 1 cap PO BID (DME) Orthopedic shoes with 3 pairs of heated and molded inserts See Rx Instructions .Route .MEDSUPPLY Qty: 1 0RF Rx Instructions: As directed to the shoe alfonso aspirin 81 mg tablet,delayed release (DR/EC) 81 mg PO DAILY Qty: 30 0RF Systane (PF) 0.4-0.3 % Dropperette 1 drp OPHTHALMIC (EYE) DAILY Discharge Orders: Discharge ED (Routine); Ordered 08/25/24 Ordered By: Freddy Branch Referrals: Matt Chavez [Primary Care Provider] - Discharge Diet: Usual diet Discharge Activity: Increase activity as tolerated Patient Instructions: Opioid Safety, Pain Management Activity Restrictions/Additional Instructions: Thank you for choosing [facility] for your healthcare needs today. It is very important that you follow up as instructed or that you return to the Emergency Department should you have concerns or if your condition changes or worsens in any way. You are seen in the emergency room for back pain. Imaging shows there is some foraminal stenosis. You were given steroids will discharge you home on diclofenac and tizanidine. Recommend that you follow-up with your primary care doctor within the week if symptoms persist you may need further evaluation. Coding Level of Care Code ED Industrial Truck Mechanic for Zohaib Johnson
--- NOTE | 2024-08-25 05:53 | XRR_ITS ---
PROCEDURE INFORMATION: Exam: XR Lumbosacral Spine Exam date and time: 08/25/2024 6:58 AM Age: 78 years old Clinical indication: Low back pain TECHNIQUE: Imaging protocol: Radiologic exam of the lumbosacral spine. Views: 2 or 3 views. COMPARISON: No relevant prior studies available. FINDINGS: Tubes, catheters and devices: Limited evaluation secondary to large field of view. Bones/joints: Decreased mineralization. Levoconvex scoliotic curvature of the lower thoracic and upper lumbar spine. Severe facet degeneration throughout the visualized lumbar spine. Grade 1-2 anterolisthesis of L4 on L5 likely secondary to severe facet degeneration. Disc height loss throughout the visualized thoracolumbar spine. Lower thoracic wedging, indeterminate age. Possible fusion/endplate sclerotic change of T12-L1. Soft tissues: Unremarkable. Organs: Status post cholecystectomy. XR/XR lumbar spine 2-3V* [id number] IMPRESSION: Thoracolumbar spondylosis. Grade 1-2 anterolisthesis of L4 on L5 likely secondary to severe facet degeneration.
[2024-08-25] MEDS: ketorolac 30 mg/mL INJ IVP (06:30)
[2024-08-25 06:31] LABS: Basophils % 0.4 %; Eosinophils % 0.2 %; Hematocrit 36.9 % (36-47); Lymphocytes # 0.7 10^3/uL (0.8-4.8); Lymphocytes % 14.2 %; Mean Corpuscular HGB Conc 34.1 g/dL (30-55); Mean Corpuscular Volume 93.7 fl (85-98); Mean Platelet Volume 10.9 fL (7.4-10.4); Monocytes # 0.3 10^3/uL (0.2-0.9); Monocytes % 6.2 %; Neutrophils # 3.84 10^3/uL (1.8-7.7); Neutrophils % 78.8 %; Nucleated Red Blood Cells % 0 %; Platelet Count 168 10^3/cmm (157-399); Red Blood Count 3.94 10^6/uL (3.85-5.65); Red Cell Distribution Width 11.9 % (12.1-15.1); White Blood Count 4.87 10^3/uL (3.29-11.43)
[2024-08-25 06:34] LABS: Bilirubin Urine Negative (Negative); Blood Urine Negative (Negative); Glucose Urine UA Negative (Normal); Ketones Urine Trace (Negative); Leukocyte Esterase Urine Negative (Negative); Nitrate Urine Negative (Negative); Protein Urine 1+ (Negative); Specific Gravity, Urine 1.007 (1.005-1.030); Urine Appearance Clear (CLEAR); Urine Color Yellow (Yellow); Urobilinogen Urine 0.2 mg/dL (Negative)
[2024-08-25 06:39] LABS: Add Urine Microscopic? YES; Bacteria Urine None Seen /hpf; Hyaline Casts Urine 0-4 /lpf; RBC Urine 0-2 /hpf (0-2); Squamous Epithelial Cell Urine 0-5 /hpf (0-5)
[2024-08-25 06:45] LABS: Alanine Aminotransferase 7 U/L (0-33); Alkaline Phosphatase 102 U/L (35-105); Anion Gap 15.9 (5-19); Aspartate Amino Transferase 20 U/L (0-32); Blood Urea Nitrogen 14 mg/dL (8-23); Calcium 9.4 mg/dL (8.5-10.5); Carbon Dioxide 27 mmol/L (22-29); Chloride 97 mmol/L (98-107); Creatinine Clr Calc Pharmacy 80.0958; Globulin 2.7 g/dL (1.3-4.6); Glucose 115 mg/dL (65-115); Lipase 54 U/L (13-60); Osmolality Calculated 283 mOsm/kg (285-295); Potassium 3.9 mmol/L (3.5-5.1); Sodium 136 mmol/L (136-145); Total Bilirubin 0.5 mg/dL (0.15-1.2); Total Protein 6.7 g/dL (6.6-8.7)
--- NOTE | 2024-08-25 07:16 | CT_ITS ---
WS: [id number] CT LUMBAR SPINE, noncontrast. HISTORY: pain TECHNIQUE: Contiguous 2.0 mm axial imaging are performed. Sagittal and coronal reformats are submitte d and reviewed. [facility] CT [facility] use at least one of these dose optimization techni ques: automated exposure control; mA and/or kV adjustment per patient size (includes targeted exams w here dose is matched to clinical indication); or iterative reconstruction. IV contrast: None DLP: 864.41 mGy.cm COMPARISON: None available. Lumbar scoliosis. Mild increase in the lumbar lordosis. L4 anterolisthesis by 6 mm. Vertebral bodies are osteopenic. Disc spaces are narrowed. No acute fracture. Advanced degenerative disc disease at T 12-L1. L1-2: Mild annular disc bulging with a broad-based but shallow RIGHT foraminal disc protrusion causin g mild encroachment upon the lateral thecal sac and foramen. Mild RIGHT subarticular recess and trixie inal stenosis. L2-3: Asymmetric annular disc bulging with mild osteophytic ridging and facet arthritis. Shallow broa d-based RIGHT foraminal disc protrusion. Mild central, bilateral subarticular recess and foraminal st enosis. L3-4: Mild annular disc bulging with facet joint arthritis and ligamentum flavum hypertrophy. Moderat e central, bilateral subarticular recess and mild foraminal stenosis. L4-5: Marked annular disc bulging with a broad-based central disc protrusion. There is significant en croachment upon the ventral thecal sac and subarticular recesses. Severe facet joint arthritis and li gamentum flavum hypertrophy. Severe central, bilateral subarticular recess and moderate foraminal caron nosis, LEFT greater than RIGHT. L5-S1: Mild disc bulging and facet arthritis. Mild foraminal narrowing. Calcified fibroid towards the uterine fundus. Advanced atherosclerosis iliac arteries. CT/CT lumbar spine wo con* [id number] IMPRESSION: 1. No acute lumbar spine fracture. 2. 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 3. L4-5: Severe central, subarticular recess and moderate foraminal stenosis d ue to combination of disc, facet and ligamentum flavum disease and the scoliosi s. 4. L4 anterolisthesis by 6 mm. 5. L3-4: Moderate central, bilateral subarticular recess and mild foraminal st enosis. 6. L2-3: Mild central, bilateral subarticular recess and foraminal stenosis. 7. L1-2: Mild RIGHT subarticular recess and foraminal stenosis due to broad-ba sed disc protrusion.
[2024-08-25 08:52] VITALS: BP 174/80; PULSE 80; O2SAT 96
[2024-08-25 09:30] VITALS: BP 185/103; PULSE 78; O2SAT 98
[2024-08-25 10:53] VITALS: RESP 18; O2SAT 97
[2024-08-25] MEDS: morphine 4 mg/mL SDV 1 mL 2 MG IVP (10:53)
[2024-08-25 11:11] VITALS: BP 191/84; PULSE 87; O2SAT 99
== END 2024-08-25 11:13 | disposition home or self-care (01) ==
PROVIDERS: Emergency Provider Family Medicine; PCP Family Medicine
DX: M48.061 Spinal stenosis, lumbar region without neurogenic claudication (principal); Z79.82 Long term (current) use of aspirin
CPT/HCPCS: 36415; 72100; 72131; 80053; 81001; 83690; 85025; 96374; 96375; 99285; J1885; J2270

== ENCOUNTER → 2025-02-16 08:10 | Outpatient (BNVA) | payer MEDICARE, OTHER, SELFPAY | PROVIDERS: PCP Family Medicine; Visit Provider Podiatrist Foot & Ankle Surgery | DX: I73.9 Peripheral vascular disease, unspecified (principal); B35.1 Tinea unguium; L84 Corns and callosities | CPT/HCPCS: 11056; 11721 ==

== ENCOUNTER → 2025-05-11 10:44 | Outpatient (BNVA) | payer MEDICARE, OTHER, SELFPAY | PROVIDERS: PCP Family Medicine; Visit Provider Podiatrist Foot & Ankle Surgery | DX: I73.9 Peripheral vascular disease, unspecified (principal); B35.1 Tinea unguium; L84 Corns and callosities | CPT/HCPCS: 11056; 11721 ==

== ENCOUNTER → 2025-07-20 11:17 | Outpatient (BNVA) | payer MEDICARE, OTHER, SELFPAY | PROVIDERS: PCP Family Medicine; Visit Provider Podiatrist Foot & Ankle Surgery | DX: I73.9 Peripheral vascular disease, unspecified (principal); B35.1 Tinea unguium; L84 Corns and callosities; L97.512 Non-pressure chronic ulcer of other part of right foot with fat layer exposed | CPT/HCPCS: 11042; 11056; 11721; 99213 ==

== ENCOUNTER → 2025-08-02 13:22 | Outpatient (BNVA) | payer MEDICARE, OTHER, SELFPAY | PROVIDERS: PCP Family Medicine; Visit Provider Podiatrist Foot & Ankle Surgery | DX: I73.9 Peripheral vascular disease, unspecified (principal); B35.1 Tinea unguium; L84 Corns and callosities; L97.512 Non-pressure chronic ulcer of other part of right foot with fat layer exposed | CPT/HCPCS: 99213 ==